=== PATIENT | female | born 1980 | race Two or more races ===

== ENCOUNTER → 2017-05-03 | Outpatient (CLI) | payer OTHER ==
[2017-05-03 11:33] LABS: FREE T4 1.34 ng/dL (0.76-1.46)
== END | disposition home or self-care (01) ==
LOC: LB 10:41
DX: Z01.84 Encounter for antibody response examination (principal); E03.9 Hypothyroidism, unspecified; E55.9 Vitamin D deficiency, unspecified
CPT/HCPCS: 84439

== ENCOUNTER → 2017-08-14 | Outpatient (CLI) | payer OTHER ==
[2017-08-16 09:10] LABS: ALKALINE PHOSPHATASE 84 U/L (46-116); AST/SGOT 15 U/L (15-37); BILIRUBIN TOTAL 0.52 mg/dL (0.20-1.00); CALCIUM 8.7 mg/dL (8.5-10.1); CARBON DIOXIDE 24.5 mmol/L (21-32); CHLORIDE SERUM 106 mmol/L (98-107); CHOLESTEROL 171 mg/dL (<200); CHOLESTEROL/HDL RATIO 4.6; CREATININE SERUM 0.9 mg/dL (0.6-1.0); FREE T4 1.25 ng/dL (0.76-1.46); GFR1 > 60 mL/min; GLUCOSE SERUM 90 mg/dL (74-106); HDL CHOLESTEROL 37 mg/dL (40-60); POTASSIUM SERUM 4.6 mmol/L (3.5-5.1); SODIUM SERUM 138 mmol/L (136-145); TOTAL PROTEIN, SERUM 7.5 g/dL (6.4-8.2); TRIGLYCERIDES 105 mg/dL (<150)
[2017-08-16 09:23] LABS: ALT/SGPT 21 U/L (14-59)
[2017-08-16 09:24] LABS: ALBUMIN 3.3 g/dL (3.4-5.0)
[2017-08-17 10:13] LABS: VITAMIN D 25-HYDROXY 36.4 ng/mL (30.0-100.0)
== END | disposition home or self-care (01) ==
LOC: US 09:00
PROC: BW4GZZZ Ultrasonography of Pelvic Region (ICD-10-PCS; principal; 2017-08-14)
DX: R10.2 Pelvic and perineal pain (principal); M54.5 Low back pain; E55.9 Vitamin D deficiency, unspecified; E03.9 Hypothyroidism, unspecified
CPT/HCPCS: 84439

== ENCOUNTER → 2018-05-30 | Outpatient (CLI) | payer OTHER ==
[2018-05-30 08:57] LABS: BASOPHIL % 0.7 % (0-2); PLATELET COUNT 291 x10^3mcL (130-400); RED CELL DISTRIBUTION WIDTH 12.9 % (11.5-14.5)
[2018-05-30 09:30] LABS: ALBUMIN 3.3 g/dL (3.4-5.0); ALKALINE PHOSPHATASE 73 U/L (46-116); ALT/SGPT 36 U/L (14-59); AST/SGOT 18 U/L (15-37); BILIRUBIN TOTAL 0.5 mg/dL (0.20-1.00); CALCIUM 8.6 mg/dL (8.5-10.1); CARBON DIOXIDE 24.7 mmol/L (21-32); CHLORIDE SERUM 107 mmol/L (98-107); CHOLESTEROL 154 mg/dL (<200); CHOLESTEROL/HDL RATIO 3.5; CREATININE SERUM 0.7 mg/dL (0.6-1.0); FREE T4 1.14 ng/dL (0.76-1.46); GFR1 > 60 mL/min; GLUCOSE SERUM 91 mg/dL (74-106); HDL CHOLESTEROL 44 mg/dL (40-60); POTASSIUM SERUM 5.1 mmol/L (3.5-5.1); SODIUM SERUM 136 mmol/L (136-145); TOTAL PROTEIN, SERUM 7.3 g/dL (6.4-8.2); TRIGLYCERIDES 62 mg/dL (<150)
[2018-05-31 10:05] LABS: VITAMIN D 25-HYDROXY 52.3 ng/mL (30.0-100.0)
== END | disposition home or self-care (01) ==
LOC: LB 07:57
DX: Z00.00 Encounter for general adult medical examination without abnormal findings (principal)
CPT/HCPCS: 84439

== ENCOUNTER → 2018-10-03 | Outpatient (CLI) | payer OTHER ==
[2018-10-03 10:39] LABS: ALBUMIN 3.4 g/dL (3.4-5.0); ALKALINE PHOSPHATASE 73 U/L (46-116); ALT/SGPT 20 U/L (14-59); AST/SGOT 13 U/L (15-37); BILIRUBIN TOTAL 0.5 mg/dL (0.20-1.00); CALCIUM 8.9 mg/dL (8.5-10.1); CARBON DIOXIDE 23.6 mmol/L (21-32); CHLORIDE SERUM 108 mmol/L (98-107); CREATININE SERUM 0.8 mg/dL (0.6-1.0); GFR1 > 60 mL/min; GLUCOSE SERUM 82 mg/dL (74-106); SODIUM SERUM 138 mmol/L (136-145); TOTAL PROTEIN, SERUM 7.2 g/dL (6.4-8.2)
== END | disposition home or self-care (01) ==
LOC: LB 09:38
DX: E55.9 Vitamin D deficiency, unspecified (principal); E03.9 Hypothyroidism, unspecified
CPT/HCPCS: 86376

== ENCOUNTER → 2018-12-05 | Outpatient (CLI) | payer OTHER ==
[2018-12-05 16:14] LABS: FREE T4 1.24 ng/dL (0.76-1.46)
== END | disposition home or self-care (01) ==
LOC: LB 14:49
DX: E03.9 Hypothyroidism, unspecified (principal)
CPT/HCPCS: 84439; 86376

== ENCOUNTER → 2019-09-11 | Outpatient (CLI) | payer OTHER ==
[2019-09-11 10:05] LABS: BASOPHIL % 1.1 % (0-2); PLATELET COUNT 322 x10^3mcL (130-400); RED CELL DISTRIBUTION WIDTH 12.3 % (11.5-14.5)
[2019-09-11 17:22] LABS: ALKALINE PHOSPHATASE 82 U/L (46-116); ALT/SGPT 33 U/L (14-59); AST/SGOT 19 U/L (15-37); BILIRUBIN TOTAL 0.4 mg/dL (0.20-1.00); CALCIUM 8.5 mg/dL (8.5-10.1); CARBON DIOXIDE 27.6 mmol/L (21-32); CHLORIDE SERUM 105 mmol/L (98-107); CHOLESTEROL 185 mg/dL (<200); CHOLESTEROL/HDL RATIO 4.6; CREATININE SERUM 0.8 mg/dL (0.6-1.0); FREE T4 1.25 ng/dL (0.76-1.46); GFR1 > 60 mL/min; GLUCOSE SERUM 78 mg/dL (74-106); HDL CHOLESTEROL 40 mg/dL (40-60); POTASSIUM SERUM 4.3 mmol/L (3.5-5.1); SODIUM SERUM 137 mmol/L (136-145); TOTAL PROTEIN, SERUM 7.4 g/dL (6.4-8.2); TRIGLYCERIDES 91 mg/dL (<150)
[2019-09-11 17:30] LABS: ALBUMIN 3.3 g/dL (3.4-5.0)
== END | disposition home or self-care (01) ==
LOC: LB 09:30
DX: Z00.00 Encounter for general adult medical examination without abnormal findings (principal)
CPT/HCPCS: 84439

== ENCOUNTER → 2020-10-09 | Outpatient (CLI) | payer OTHER ==
[2020-10-09 11:06] LABS: BASOPHIL % 0.9 % (0.2-1.3); PLATELET COUNT 326 x10^3mcL (179-408); RED CELL DISTRIBUTION WIDTH 12.7 % (12.3-17.7)
[2020-10-09 11:33] LABS: T3 TOTAL 1.09 ng/mL
[2020-10-09 11:42] LABS: ALBUMIN 3.6 g/dL (3.4-5.0); ALKALINE PHOSPHATASE 62 U/L (46-116); ALT/SGPT 21 U/L (14-59); AST/SGOT 13 U/L (15-37); BILIRUBIN TOTAL 0.43 mg/dL (0.20-1.00); CALCIUM 8.7 mg/dL (8.5-10.1); CHLORIDE SERUM 104 mmol/L (98-107); CHOLESTEROL 185 mg/dL (<200); CHOLESTEROL/HDL RATIO 3.9; CREATININE SERUM 0.8 mg/dL (0.6-1.0); GFR1 > 60 mL/min; GLUCOSE SERUM 77 mg/dL (74-106); HDL CHOLESTEROL 47 mg/dL (40-60); POTASSIUM SERUM 3.8 mmol/L (3.5-5.1); SODIUM SERUM 141 mmol/L (136-145); TOTAL PROTEIN, SERUM 7.6 g/dL (6.4-8.2); TRIGLYCERIDES 128 mg/dL (<150)
[2020-10-09 12:32] LABS: FREE T4 1.47 ng/dL (0.76-1.46)
== END | disposition home or self-care (01) ==
LOC: LB 07:07
DX: E06.3 Autoimmune thyroiditis (principal)
CPT/HCPCS: 84439; 86376